=== PATIENT | female | born 1935 | race Caucasian/White ===

== ENCOUNTER 2019-01-22 21:22 | Emergency (ER) | payer MEDICARE ==
[2019-01-22 21:34] VITALS: BP 161/74; PULSE 56; RESP 18; TEMP 97.8
--- NOTE | 2019-01-22 21:57 | ED ---
General Adult HPI - General Chief complaint: Extremity Injury, Upper Stated complaint: Broken hand, Hand swollen in cast Time Seen by Provider: 01/22/19 21:44 Source: patient Mode of arrival: ambulatory Limitations: no limitations - History of Present Illness Initial comments: This patient is an 83-year-old woman who presents to have evaluation of her r ight hand. The patient states that she had fallen and had a wrist fracture that occurred on Monday. She was seen by Dr. Fong, in the clinic and had a cast applied yesterday. Today she noticed that there was an increase in the swelling and she had noticed some bruising low the margin of the cast. She states that her papers had instructed her to be seen if there was any discoloration. The pa tient denies significant pain. She is not having numbness of the hand or fingers. She has not noted weakness of the fingers. -: hour(s) Location: right, upper extremity Severity scale (1-10): 0 Consistency: constant Improves with: none Worsens with: none Treatments Prior to Arrival: none - Related Data Home Medications Medication Instructions Recorded Confirmed Atenolol 25 mg PO DAILY 10/19/15 01/22/19 Atorvastatin [Lipitor] 10 mg PO DAILY 10/19/15 01/22/19 Calcium Carbonate/Vitamin D3 1 tab PO DAILY 10/19/15 01/22/19 [Calcium 600 + Vit D Tablet] Ezetimibe [Zetia] 10 mg PO DAILY 10/19/15 01/22/19 Famotidine [Pepcid] 20 mg PO DAILY PRN 10/19/15 01/22/19 Levothyroxine Sodium [Synthroid] 88 mcg PO DAILY 10/19/15 01/22/19 Multivitamins, Thera [Multivitamin] 1 tab PO DAILY 10/19/15 01/22/19 Vitamin E 1,000 unit PO DAILY 10/19/15 01/22/19 Allergies Allergy/AdvReac Type Severity Reaction Status Date / Time azithromycin Allergy Swelling Verified 01/22/19 21:49 [From Zithromax Z-Srinivasan] cefaclor [From Ceclor] Allergy Rash/Hives Verified 01/22/19 21:49 clindamycin Allergy Diarrhea, Verified 01/22/19 21:49 AND UNKNOWN SYMPTOMS codeine Allergy Unknown Verified 01/22/19 21:49 Penicillins Allergy Unknown Verified 01/22/19 21:49 sulfamethoxazole Allergy Rash/Hives Verified 01/22/19 21:49 [From Bactrim] tetrahydrozoline HCl Allergy Swelling Verified 01/22/19 21:49 [From Visine] timolol [From Betimol] Allergy Swelling Verified 01/22/19 21:49 trimethoprim [From Bactrim] Allergy Rash/Hives Verified 01/22/19 21:49 Review of Systems ROS Statement: Those systems with pertinent positive or pertinent negative responses have been documented in the HPI. ROS Other: All systems not noted in ROS Statement are negative. Constitutional: Denies: fever, chills, weakness Respiratory: Denies: cough, dyspnea Cardiovascular: Denies: chest pain, palpitations Musculoskeletal: Reports: as per HPI, joint swelling Neurological: Denies: weakness, numbness, paresthesias Past Medical History Past Medical History: Cancer, CVA/TIA, GERD/Reflux, Hyperlipidemia, Hypertension, Osteoarthritis (OA), Thyroid Disorder Additional Past Medical History / Comment(s): CERVICAL CANCER, CATARACT BOTH EYES. broken right wrist History of Any Multi-Drug Resistant Organisms: None Reported Past Surgical History: Hysterectomy, Orthopedic Surgery Additional Past Surgical History / Comment(s): RIGHT KNEE ARTHROSCOPIC Past Anesthesia/Blood Transfusion Reactions: No Reported Reaction Past Psychological History: No Psychological Hx Reported Smoking Status: Former smoker Past Alcohol Use History: None Reported Past Drug Use History: None Reported - Past Family History Daughter(s) Family Medical History: Cancer Additional Family Medical History / Comment(s): LEUKEMIA General Exam Limitations: no limitations General appearance: alert, in no apparent distress Cardiovascular Exam: Present: other (Ears normal capillary refill throughout the right hand) Extremities exam: Present: full ROM, normal capillary refill, other (Patient has a Ortho-Glass short arm cast to the right wrist and forearm. Inspection reveals that there is a small amount of ecchymosis covering the MCP joints. Color throughout the fingers is normal. There is normal capillary refill. There is normal strength and sensation.) Neurological exam: Present: alert. Absent: motor sensory deficit Skin exam: Present: warm, dry, intact, normal color, other Course Vital Signs 01/22/19 21:30 Temperature 97.8 F Pulse Rate 56 L Respiratory 18 Rate Blood Pressure 161/74 O2 Sat by Pulse 98 Oximetry Disposition Clinical Impression: Problem with fiberglass cast Disposition: HOME SELF-CARE Condition: Good Instructions (If sedation given, give patient instructions): Cast Care (ED) Is patient prescribed a controlled substance at d/c from ED?: No Referrals: Gretta Mckinney MD [Primary Care Provider] - 1-2 days Sathya Fong MD [STAFF PHYSICIAN] - 1-2 days
== END 2019-01-22 22:11 | disposition home or self-care (01) ==
LOC: EC 21:22
DX: S60.211A Contusion of right wrist, initial encounter (principal); E78.5 Hyperlipidemia, unspecified; I10 Essential (primary) hypertension; E07.9 Disorder of thyroid, unspecified; Z85.41 Personal history of malignant neoplasm of cervix uteri; Z86.73 Personal history of transient ischemic attack (TIA), and cerebral infarction without residual deficits; Z87.891 Personal history of nicotine dependence; Z79.890 Hormone replacement therapy; Z79.899 Other long term (current) drug therapy; Z88.1 Allergy status to other antibiotic agents; Z88.5 Allergy status to narcotic agent; Z88.0 Allergy status to penicillin; Z88.2 Allergy status to sulfonamides; Z88.8 Allergy status to other drugs, medicaments and biological substances; W19.XXXA Unspecified fall, initial encounter
CPT/HCPCS: 99283

== ENCOUNTER 2020-11-29 14:08 | Inpatient (IN) | payer MEDICARE ==
[~2020-11-29 14:08] MED LIST: SODIUM CHLORIDE 0.9% 1,000 ML IV ONE
[2020-11-29] MEDS ORDERED: VERAPAMIL 2.5 MG/ML 2 ML AMP ONE (14:25)
[2020-11-29] MEDS ORDERED: LIDOCAINE 1% INJ 10MG/ML (20 ML MDV) ONE (14:25)
[2020-11-29] MEDS ORDERED: fentaNYL (PF) 50 MCG/ML 2 ML AMP IV ONE (14:25)
[2020-11-29] MEDS ORDERED: MIDAZOLAM 2 MG/2 ML VIAL IV ONE (14:25)
[2020-11-29] MEDS ORDERED: LIDOCAINE 1% INJ 10MG/ML (20 ML MDV) SQ ONE (14:27)
[2020-11-29] MEDS ORDERED: NALOXONE 0.4 MG/ML 1 ML VIAL IV PRN (14:27)
[2020-11-29] MEDS ORDERED: fentaNYL (PF) 50 MCG/ML 2 ML AMP ONE (14:28)
[2020-11-29] MEDS ORDERED: VERAPAMIL SYRINGE (5 MG/10 ML) INTRAARTER ONE (14:29)
[2020-11-29] MEDS ORDERED: HEPARIN SODIUM 1,000 UN/ML (10ML VL) ONE (14:33)
--- NOTE | 2020-11-29 14:33 | ED ---
General Adult HPI - General Stated complaint: Stemi Source: patient, EMS, RN notes reviewed, old records reviewed - History of Present Illness Initial comments: 84-year-old female who had been transferred from [facility] as an acute NV, ST segment elevation NV. DL physician from [facility] have discussed case both with myself and with the covering lift manager Dr. Read who had accepted the patient. She was planning to go directly to the Insurance Sales Manager however just outside emergency department she had a V. fib arrest and was defibrillated by paramedics. They requested evaluation in the emergency department. Patient had return to sinus rhythm with a momentary wrong of ventricular tachycardia. She was somewhat lethargic but able to answer questions. She had developed some worsening chest discomfort and a burning sensation in her neck just prior to this episode. She was transported to the [facility] Sales [facility] accompanied by myself two ER nurses. As well as paramedics. - Related Data Home Medications Medication Instructions Recorded Confirmed Atorvastatin [Lipitor] 10 mg PO DAILY 10/19/15 01/22/19 Calcium Carbonate/Vitamin D3 1 tab PO DAILY 10/19/15 01/22/19 [Calcium 600 + Vit D Tablet] Ezetimibe [Zetia] 10 mg PO DAILY 10/19/15 01/22/19 Famotidine [Pepcid] 20 mg PO DAILY PRN 10/19/15 01/22/19 Levothyroxine Sodium [Synthroid] 88 mcg PO DAILY 10/19/15 01/22/19 Multivitamins, Thera [Multivitamin] 1 tab PO DAILY 10/19/15 01/22/19 Vitamin E (Dl,Tocopheryl Acet) 1,000 unit PO DAILY 10/19/15 01/22/19 [Vitamin E] atenoloL [Atenolol] 25 mg PO DAILY 10/19/15 01/22/19 Allergies Allergy/AdvReac Type Severity Reaction Status Date / Time azithromycin Allergy Swelling Verified 01/22/19 21:49 [From Zithromax Z-Srinivasan] cefaclor [From Ceclor] Allergy Rash/Hives Verified 01/22/19 21:49 clindamycin Allergy Diarrhea, Verified 01/22/19 21:49 AND UNKNOWN SYMPTOMS codeine Allergy Unknown Verified 01/22/19 21:49 Penicillins Allergy Unknown Verified 01/22/19 21:49 sulfamethoxazole Allergy Rash/Hives Verified 01/22/19 21:49 [From Bactrim] tetrahydrozoline HCl Allergy Swelling Verified 01/22/19 21:49 [From Visine] timolol [From Betimol] Allergy Swelling Verified 01/22/19 21:49 trimethoprim [From Bactrim] Allergy Rash/Hives Verified 01/22/19 21:49 Review of Systems ROS Statement: Those systems with pertinent positive or pertinent negative responses have been documented in the HPI. ROS Other: All systems not noted in ROS Statement are negative. Past Medical History Past Medical History: Cancer, CVA/TIA, GERD/Reflux, Hyperlipidemia, Hypertension, Osteoarthritis (OA), Thyroid Disorder Additional Past Medical History / Comment(s): CERVICAL CANCER, CATARACT BOTH EYES. broken right wrist History of Any Multi-Drug Resistant Organisms: None Reported Past Surgical History: Hysterectomy, Orthopedic Surgery Additional Past Surgical History / Comment(s): RIGHT KNEE ARTHROSCOPIC Past Anesthesia/Blood Transfusion Reactions: No Reported Reaction Past Psychological History: No Psychological Hx Reported Past Alcohol Use History: None Reported Past Drug Use History: None Reported - Past Family History Daughter(s) Family Medical History: Cancer Additional Family Medical History / Comment(s): LEUKEMIA General Exam General appearance: lethargic, in distress Head exam: Present: atraumatic, normocephalic Eye exam: Present: normal appearance, PERRL ENT exam: Present: normal exam Neck exam: Present: normal inspection Respiratory exam: Absent: respiratory distress Cardiovascular Exam: Present: regular rate, normal rhythm, other (Monitor tracing, occasional PVC and occasional bigeminy) Neurological exam: Present: alert Skin exam: Present: pallor Procedures - [place] Protocol (Time Out) Patient Identification (2 identifiers required): Arm Band, Name, Birthdate Patient/Legal Expanding Machine Operator has Confirmed: Identity, Procedure, Consent Site Marked: Not Applicable Medical Decision Making - Medical Decision Making 84-year-old female transferred from outside hospital with ST segment elevated NV. Patient had a momentary ventricular defibrillation requiring defibrillation. She can return to sinus rhythm. She was transported immediately to the [facility] Sales [facility]. She had been given aspirin, heparin prior to transfer. Patient admitted to internal medicine, discussed with admitting physician. Disposition Clinical Impression: STEMI (ST elevation myocardial infarction) Disposition: ADMITTED IP TO THIS HOSP Condition: Serious Is patient prescribed a controlled substance at d/c from ED?: No Referrals: None,Stated [Primary Care Provider] - 1-2 days Decision to Admit Reason: Admit from EC
[2020-11-29] MEDS: HEPARIN SODIUM 1,000 UN/ML (10ML VL) IV ONE ×2 (14:40→15:06)
[2020-11-29] MEDS ORDERED: CLOPIDOGREL 75 MG TAB ONE (15:06)
[2020-11-29] MEDS ORDERED: CLOPIDOGREL 75 MG TAB PO ONE (15:06)
[2020-11-29 15:10] LABS: Basophils % (A) 0 %; Eosinophils # (A) 0.1 k/uL (0-0.7); Eosinophils % (A) 1 %; HCT 37.3 % (34.0-46.0); HGB 12.1 gm/dL (11.4-16.0); Lymphocytes # (A) 1.4 k/uL (1.0-4.8); Lymphocytes % (A) 11 %; MCH 31.6 pg (25.0-35.0); MCHC 32.6 g/dL (31.0-37.0); MCV 97.2 fL (80.0-100.0); Mean Platelet Volume 6.2; Monocytes # (A) 0.4 k/uL (0-1.0); Monocytes % (A) 3 %; Neutrophils # (A) 10.5 k/uL (1.3-7.7); Neutrophils % (A) 83 %; Platelet Count 377 k/uL (150-450); RBC 3.84 m/uL (3.80-5.40); RDW 12.4 % (11.5-15.5); WBC 12.7 k/uL (3.8-10.6)
[2020-11-29] MEDS ORDERED: IOPAMIDOL-370 125ML BTL INJ ONE (15:12)
[2020-11-29] MEDS ORDERED: NITROGLYCERIN SL TABS 0.4 MG TAB SUBLINGUAL PRN (15:19)
[2020-11-29] MEDS ORDERED: MAG HYDROX/AL HYDROX/SIMETH 30 ML CUP PO PRN (15:19)
[2020-11-29] MEDS ORDERED: ATROPINE SULFATE 0.1 MG/ML 10ML SYRINGE IV PRN (15:19)
[2020-11-29] MEDS ORDERED: ZOLPIDEM 5 MG TAB PO PRN (15:19)
[2020-11-29] MEDS ORDERED: RX INFO: IV CONTRAST WAS GIVEN 1 EACH MISC MISCELLANE PRN (15:19)
[2020-11-29 15:20] LABS: ALT 15 U/L (4-34); AST 34 U/L (14-36); African American GFR (CKD) >90 (>60 ml/min/1.73 sqM); Albumin 4.1 g/dL (3.5-5.0); Alkaline Phosphatase 72 U/L (38-126); Anion Gap 7 mmol/L; Blood Urea Nitrogen 10 mg/dL (7-17); Calcium 9.2 mg/dL (8.4-10.2); Carbon Dioxide 24 mmol/L (22-30); Chloride 98 mmol/L (98-107); Glucose 137 mg/dL (74-99); Non-African American GFR(CKD) 82 (>60 ml/min/1.73 sqM); Potassium 3.3 mmol/L (3.5-5.1); Sodium 129 mmol/L (137-145); Total Bilirubin 0.3 mg/dL (0.2-1.3); Total Protein 6.8 g/dL (6.3-8.2)
--- NOTE | 2020-11-29 15:42 | P.CRDCN ---
History of Present Illness History of present illness: HISTORY OF PRESENTING ILLNESS This is a pleasant 84-year-old with past medical history significant for hypertension, hyperlipidemia and otherwise fairly healthy. [facility] with chest pain which began today at approximately 1 PM. Chest pain felt like a pressure going towards her back which has not resolved. She denies any previous similar episodes. EKG at [facility] showed ST elevation in the inferior leads with reciprocal changes and therefore she was emergently brought to [facility] for heart catheterization and possible PCI. She has not seen a lease administration analyst previously, denies any tobacco or alcohol use. On transfer to [facility], patient had a V. fib arrest and required cardioversion. After cardioversion patient felt fine however still had the chest discomfort. Patient therefore was emergently brought to the catheterizat ion lab. REVIEW OF SYSTEMS At the time of my exam: CONSTITUTIONAL: Denies fever or chills. CARDIOVASCULAR: +chest pain, no shortness of breath, orthopnea, PND or palpitations. RESPIRATORY: Denies cough. GASTROINTESTINAL: Denies abdominal pain, diarrhea, constipation, nausea or vomiting. MUSCULOSKELETAL: Denies myalgias. NEUROLOGIC: Denies numbness, tingling or weakness. ENDOCRINE: Denies fatigue, weight change, polydipsia or polyurina. GENITOURINARY: Denies burning, hematuria or urgency with micturation. HEMATOLOGIC: Denies history of anemia or bleeding. PHYSICAL EXAMINATION Vital signs reviewed. CONSTITUTIONAL: Mild distress. Mildly frail HEENT: Head is normocephalic. Pupils are equal, round. Sclerae anicteric. Mucous membranes of the mouth are moist. No JVD. No carotid bruit. CHEST EXAMINATION: Lungs are clear to auscultation. No chest wall tenderness is noted on palpation or with deep breathing. HEART EXAMINATION: Regular rate and rhythm. S1, S2 heard. No murmurs, gallops or rub. ABDOMEN: Soft, nontender. Positive bowel sounds. EXTREMITIES: 2+ peripheral pulses, no lower extremity edema and no calf tenderness. NEUROLOGIC EXAMINATION: Patient is awake, alert and oriented x3. ASSESSMENT 1. Inferior STEMI 2. V. fib arrests related to STEMI 3. Essential hypertension 4. Hyperlipidemia PLAN Patient will be emergently brought to the catheterization lab with her cat heterization, possible PCI. Continue beta gildardo for V. fib arrests, check 2-D echo. No amiodarone at this time as V. fib arrest is not uncommon with acute coronary syndrome however monitor for any increasing ectopy. Further recommendations to follow. Past Medical History Past Medical History: Cancer, CVA/TIA, GERD/Reflux, Hyperlipidemia, Hypertension, Osteoarthritis (OA), Thyroid Disorder Additional Past Medical History / Comment(s): CERVICAL CANCER, CATARACT BOTH EYES. broken right wrist History of Any Multi-Drug Resistant Organisms: None Reported Past Surgical History: Hysterectomy, Orthopedic Surgery Additional Past Surgical History / Comment(s): RIGHT KNEE ARTHROSCOPIC Past Anesthesia/Blood Transfusion Reactions: No Reported Reaction Past Psychological History: No Psychological Hx Reported Past Alcohol Use History: None Reported Past Drug Use History: None Reported - Past Family History Daughter(s) Family Medical History: Cancer Additional Family Medical History / Comment(s): LEUKEMIA Medications and Allergies Home Medications Medication Instructions Recorded Confirmed Type Atorvastatin [Lipitor] 10 mg PO DAILY 10/19/15 01/22/19 History Calcium Carbonate/Vitamin D3 1 tab PO DAILY 10/19/15 01/22/19 History [Calcium 600 + Vit D Tablet] Ezetimibe [Zetia] 10 mg PO DAILY 10/19/15 01/22/19 History Famotidine [Pepcid] 20 mg PO DAILY PRN 10/19/15 01/22/19 History Levothyroxine Sodium [Synthroid] 88 mcg PO DAILY 10/19/15 01/22/19 History Multivitamins, Thera [Multivitamin] 1 tab PO DAILY 10/19/15 01/22/19 History Vitamin E (Dl,Tocopheryl Acet) 1,000 unit PO DAILY 10/19/15 01/22/19 History [Vitamin E] atenoloL [Atenolol] 25 mg PO DAILY 10/19/15 01/22/19 History Allergies Allergy/AdvReac Type Severity Reaction Status Date / Time azithromycin Allergy Swelling Verified 01/22/19 21:49 [From Zithromax Z-Srinivasan] cefaclor [From Ceclor] Allergy Rash/Hives Verified 01/22/19 21:49 clindamycin Allergy Diarrhea, Verified 01/22/19 21:49 AND UNKNOWN SYMPTOMS codeine Allergy Unknown Verified 01/22/19 21:49 Penicillins Allergy Unknown Verified 01/22/19 21:49 sulfamethoxazole Allergy Rash/Hives Verified 01/22/19 21:49 [From Bactrim] tetrahydrozoline HCl Allergy Swelling Verified 01/22/19 21:49 [From Visine] timolol [From Betimol] Allergy Swelling Verified 01/22/19 21:49 trimethoprim [From Bactrim] Allergy Rash/Hives Verified 01/22/19 21:49 Physical Exam Vitals: Intake and Output 11/29/20 11/29/20 11/29/20 06:59 14:59 22:59 Intake Total 100 Balance 100 Intake: IV 100 Other: Weight 49 kg Results 11/29/20 15:00 11/29/20 15:00 Cardiac Enzymes 11/29/20 Range/Units 15:00 AST 34 (14-36) U/L CBC 11/29/20 Range/Units 15:00 WBC 12.7 H (3.8-10.6) k/uL RBC 3.84 (3.80-5.40) m/uL Hgb 12.1 (11.4-16.0) gm/dL Hct 37.3 (34.0-46.0) % Plt Count 377 (150-450) k/uL Comprehensive Metabolic Panel 11/29/20 Range/Units 15:00 Sodium 129 L (137-145) mmol/L Potassium 3.3 L (3.5-5.1) mmol/L Chloride 98 (98-107) mmol/L Carbon Dioxide 24 (22-30) mmol/L BUN 10 (7-17) mg/dL Creatinine 0.68 (0.52-1.04) mg/dL Glucose 137 H (74-99) mg/dL Calcium 9.2 (8.4-10.2) mg/dL AST 34 (14-36) U/L ALT 15 (4-34) U/L Alkaline Phosphatase 72 (38-126) U/L Total Protein 6.8 (6.3-8.2) g/dL Albumin 4.1 (3.5-5.0) g/dL Intake and Output 11/29/20 11/29/20 11/29/20 06:59 14:59 22:59 Intake Total 100 Balance 100 Intake: IV 100 Other: Weight 49 kg Patient Weight 11/30/20 06:59 Weight 49 kg 11/29/20 15:00 11/29/20 15:00
[2020-11-29 15:46] LABS: Glucose,Whole Blood 116 mg/dL (75-99)
[2020-11-29] MEDS ORDERED: ONDANSETRON 4 MG/2 ML VIAL IVP PRN (16:17)
[2020-11-29] MEDS ORDERED: ALPRAZolam 0.25 MG TAB PO PRN (18:12)
[2020-11-29] MEDS ORDERED: FAMOTIDINE 20 MG TAB PO PRN (18:12)
[2020-11-29] MEDS ORDERED: Potassium Replacement Protocol 1 EACH MISC MISCELLANE PRN (18:12)
[2020-11-29] MEDS ORDERED: Magnesium Replacement Protocol 1 EACH MISC MISCELLANE PRN (18:12)
--- NOTE | 2020-11-29 19:35 | HP ---
HISTORY AND PHYSICAL DATE OF SERVICE: 11/29/2020 CHIEF COMPLAINT: Chest and back pain. HISTORY OF PRESENT ILLNESS: This is an 84-year-old woman with a past medical history of multiple medical problems including CVA, TIA, GERD, hypertension, hyperlipidemia, history of DJD, history of cervical cancer, being followed by Dr. Mckinney in the outpatient setting. She had chest pain this morning. The pain was in the anterior part of the chest as well as behind shoulders and apparently the daughter drove her to [facility], which showed the patient was found to have acute ST-segment elevation myocardial infarction. The patient was transferred to [facility]. On the way, the patient had ventricular fibrillation and arrested and was defibrillated by paramedics. The patient underwent cardiac catheterization by Dr. Read and the patient had stenting. The full report is pending at this time. There is no history of fever, rigors, chills. No history of headache, loss of consciousness, seizures. PAST MEDICAL HISTORY: History of CVA, TIA, GERD, hypertension, hyperlipidemia, history of DJD, hypothyroidism, cervical cancer. MEDICATIONS: Home medications are atenolol 25 mg daily, multivitamins one daily, Synthroid 88 mcg daily, Pepcid 20 mg daily, Zetia 10 mg daily, Calcium with vitamin D 1 p.o. daily, Lipitor 10 mg p.o. daily. ALLERGIES: ZITHROMAX, CECLOR, CLINDAMYCIN, CODEINE, PENICILLIN, BACTRIM, VISINE. FAMILY HISTORY: History of leukemia. SOCIAL HISTORY: History of smoking. No history of alcohol intake. REVIEW OF SYSTEMS: CARDIOVASCULAR: No angina. RESPIRATORY: No cough. GI: As mentioned earlier. : No dysuria. NERVOUS SYSTEM: No numbness or weakness. ALLERGY/IMMUNOLOGY: No asthma or hayfever. MUSCULOSKELETAL: As mentioned earlier. HEMATOLOGY: No history of anemia. ENDOCRINE: Hypothyroidism. CONSTITUTIONAL: As mentioned earlier. DERMATOLOGY: Negative. RHEUMATOLOGY: Negative. PSYCHIATRY: As mentioned earlier. PHYSICAL EXAMINATION: GENERAL: Patient is alert and oriented times three. VITAL SIGNS: Pulse 82, blood pressure 120/80, respirations 20, temperature normal. HEENT: Conjunctivae normal. NECK: No jugular venous distention. No carotid bruits. RESPIRATORY: Breath sounds diminished at the bases. A few scattered rhonchi. HEART: S1 and S2, muffled. ABDOMEN: Soft, no tenderness. No masses palpable. EXTREMITIES: No edema, no swelling. NERVOUS: Higher functions as mentioned earlier. Moves all four limbs. No focal motor or sensory deficits. LYMPHATICS: No lymph nodes palpable in the neck or axillae. SKIN: No rashes. JOINTS: No active deforming arthropathy. LAB STUDIES: WBC 12.2, hemoglobin 12.2, sodium 139, potassium 3.3. ASSESSMENT: 1. Acute ST-segment elevation myocardial infarction status post cardiac catheterization and stenting. 2. Hyponatremia. 3. Ventricular fibrillation status post cardioversion. 4. Hypokalemia. 5. Increased WBC, possibly reactive. 6. History of cerebrovascular accident and transient ischemic attack .. 7. Gastroesophageal reflux disease. 8. Hyperlipidemia. 9. Hypertension. 10.History of degenerative joint disease. 11.Hypothyroidism. 12.History of cervical cancer. 13.History of transient ischemic attack .. 14.History hysterectomy. 15.History of degenerative joint disease. 16.Remote history of nicotine dependence. 17.FULL CODE. RECOMMENDATIONS AND DISCUSSION: This 84-year-old woman who presented with multiple complex medical issues, we will monitor the patient closely. We will continue to monitor. Continue the beta blockers and antiplatelet agents. Monitor closely in ICU. We will check and replace magnesium. Potassium will be also will be replaced. The home medications were resumed. Otherwise, prognosis guarded because of multiple complex medical issues. Closely follow with Cardiology. I discussed the diagnostic and prognostic implications with the family at the bedside who understands and agrees. Further recommendations to follow. MMODL / IJN: [id number] /
[2020-11-29 19:44] LABS: ALT 18 U/L (4-34); AST 58 U/L (14-36); African American GFR (CKD) >90 (>60 ml/min/1.73 sqM); Albumin 4.3 g/dL (3.5-5.0); Alkaline Phosphatase 72 U/L (38-126); Anion Gap 12 mmol/L; Blood Urea Nitrogen 11 mg/dL (7-17); Calcium 9.7 mg/dL (8.4-10.2); Carbon Dioxide 22 mmol/L (22-30); Chloride 99 mmol/L (98-107); Glucose 131 mg/dL (74-99); Non-African American GFR(CKD) 79 (>60 ml/min/1.73 sqM); Sodium 133 mmol/L (137-145); Total Bilirubin 0.5 mg/dL (0.2-1.3); Total Protein 6.8 g/dL (6.3-8.2)
[2020-11-29 19:50] LABS: Potassium 3.8 mmol/L (3.5-5.1)
[2020-11-29] MEDS ORDERED: METOPROLOL TARTRATE 25 MG TAB PO SCH (21:00)
[2020-11-29] MEDS: PANTOPRAZOLE 40 MG/10 ML VIAL IVP SCH (22:03)
[2020-11-29] MEDS: METOPROLOL TARTRATE 25 MG TAB PO SCH (22:04)
--- NOTE | 2020-11-29 22:04 | P.PRCINT ---
Percutaneous Coronary Int. - Percutaneous Coronary Intervention Percutaneous Coronary Intervention: PROCEDURES PERFORMED: Bilateral coronary angiography, PCI of the mid circumflex with 4.0 x 8 mm Xience SHAYNE, attempted wiring of RCA INDICATION: STEMI HISTORY: Patient is a pleasant 84-year-old female with history of hypertension and hyperlipidemia who presents secondary to chest pain, back pain and was found to have minimal ST elevations in the inferior leads with reciprocal changes. Therefore patient was transferred from [facility] to [facility] for left heart catheterization, PCI. On transfer patient had a V. fib arrest successfully treated with defibrillation. CONSENT:I have discussed the risks, benefits and alternative therapies for the above-mentioned procedure and for both sedation/analgesia as well as necessary blood product administration, if indicated, as they pertain to this patient. The patient has indicated understanding and acceptance of the risks and procedures discussed. PROCEDURE: After the risks, benefits and alternatives of the above mentioned procedure explained in detail with the patient, informed consent was obtained. Patient was taken to the catheterization lab and prepped and draped in usual fashion. 1% lidocaine was used to anesthetize the right radial artery. A 6- Croatian sheath was placed in the right radial artery using modified Seldinger technique. The J-wire was attempted to be advanced past the subclavian however subclavian was very tortuous and there was difficulty with advancing. Therefore decision was made to switch to femoral approach. The right femoral area was anesthetized with 1% lidocaine. A 6-Croatian sheath was placed using Seldinger technique and micropuncture technique. Right coronary angiography was performed with a 6-Croatian AL 0.75 guide catheter and Left coronary angiography was performed with a 6-Croatian FL4 catheter in various views. Given inferior ST elevations and what appeared to be dieting up in the RCA the decision was made to attempt intervention of the RCA. There were extensive aneurysms with what appeared to be a heavily calcified thrombus of the distal RCA at the site of 100% stenosis. With the help of a microcatheter a 0.014 whisper wire was advanced into what appeared to be the PDA however came off at a fairly acute angle. This appeared to be the area of bifurcation into the PLV is well and not felt to be a good area for stenting, likely unsuccessful with possible risks of perforation. There is also noted to be some left to right collaterals with some component of an acute on chronic total occlusion and therefore consideration of stenting circumflex lesion to help with collateral flow. Therefore a 6-Croatian CLS 3.5 guide was used to engage the left main. A 0.014 BMW wire was advanced into the distal circumflex. Primary stenting was performed of the mid circumflex with a 4.0 x 8 mm Xience SHAYNE. With intervention patient's chest pain improved to a minimal and ST elevations predominantly improved. The right radial sheath was removed and a TR band was placed with hemostasis ac hieved. The patient tolerated the procedure well. Patient was transported back to the post catheterization holding area in stable condition. Conscious Sedation: Patient was monitored under the direct supervision of vision of myself for conscious sedation using Versed and fentanyl for a total duration of 51 minutes HEMODYNAMICS: Ao: 143/78 SELECTIVE CORONARY ARTERIOGRAPHY: LEFT MAIN: The left main is a large caliber vessel which bifurcates into the LAD and circumflex. There is 10% stenosis. LEFT ANTERIOR DESCENDING CORONARY ARTERY: LAD is a large caliber vessel which wraps around to the apex. The LAD has diffuse aneurysms as well as a mid 60-70% LAD stenosis. Diagonal 1 is moderate caliber and has a ostial 60% stenosis. LEFT CIRCUMFLEX CORONARY ARTERY: Left circumflex is a large caliber vessel which is diffusely aneurysmal with an additional area of mid circumflex 85% stenosis. RIGHT CORONARY ARTERY: The right coronary artery is a large caliber vessel which gives off a PDA and PLV branch and is the dominant vessel. There is diffuse mild to moderate stenosis as well 3 areas of diffuse aneurysm. The most distal aneurysm has what appears to be a calcified thrombus obstructing most of the lumen of the aneurysm. There is tightening up at this point. There is 100% stenosis at the distal end of the aneurysm. FINAL IMPRESSION: 1. CAD as described above including 100% RCA, mid circumflex 85%, mid LAD 60- 70%, ostial diagonal 1 60% 2. Diffuse aneurysmal CAD. Correlate for history of Kawasaki's disease or vasculitis 3. S/p successful PCI of mid circumflex with improvement in collateral flow 4. Site of aneurysmal RCA stenosis not amenable to stenting. Benefits not felt to outweigh risks with higher risk of perforation, unclear course of artery distal to aneurysm, likely acute on chronic component with some collaterals, large calcified thrombus noted in the RCA aneurysm, as well as likely poor shelter stent patency. PLAN: 1. Aggressive risk factor modification per most recent ACC/AHA guidelines. 2. Continue dual antiplatelets for 12 months 3. Would continue to treat RCA medically. Continue to treat LAD and diagonal branch medically however may consider functional evaluation if persistent symptoms
[2020-11-30 03:23] LABS: Appearance,Urine Clear (Clear); Bilirubin,Urine Negative (Negative); Blood,Urine Trace (Negative); Color,Urine Light Yellow; Glucose,Urine (UA) Negative (Negative); Ketones,Urine 1+ (Negative); Leukocyte Esterase,Urine Negative (Negative); Mucus,Urine Rare /hpf; Nitrite,Urine Negative (Negative); PH, Urine 6.5 (5.0-8.0); Protein,Urine Trace (Negative); RBC,Urine 2 /hpf (0-5); Specific Gravity,Urine 1.023 (1.001-1.035); Urobilinogen,Urine <2.0 mg/dL (<2.0); WBC,Urine 2 /hpf (0-5)
[2020-11-30 04:11] LABS: Basophils % (A) 0 %; Eosinophils % (A) 0 %; HCT 36.3 % (34.0-46.0); HGB 12.2 gm/dL (11.4-16.0); Lymphocytes # (A) 0.7 k/uL (1.0-4.8); Lymphocytes % (A) 5 %; MCHC 33.6 g/dL (31.0-37.0); MCV 98.3 fL (80.0-100.0); Mean Platelet Volume 6.2; Monocytes # (A) 0.7 k/uL (0-1.0); Monocytes % (A) 6 %; Neutrophils # (A) 10.7 k/uL (1.3-7.7); Neutrophils % (A) 87 %; Platelet Count 340 k/uL (150-450); RDW 11.8 % (11.5-15.5); WBC 12.3 k/uL (3.8-10.6)
--- NOTE | 2020-11-30 06:10 | XR ---
EXAMINATION TYPE: XR chest 1V portable DATE OF EXAM: 11/30/2020 CLINICAL HISTORY: Difficulty breathing and CHF. TECHNIQUE: Single AP portable frontal upright view of the chest is obtained. COMPARISON: None FINDINGS: Exam limited by overlying defibrillator pads. Additional overlying EKG leads. Elevated lef t hemidiaphragm. Linear bibasilar opacities. There is no suspicious focal air space opacity, pleural effusion, or pneumothorax seen. The cardiac silhouette size is upper limits of normal with atheroscl erotic thoracic aorta. The osseous structures are intact. IMPRESSION: [id number] bibasilar linear scarring and/or atelectasis
[2020-11-30] MEDS: SODIUM CHLORIDE 0.9% 1,000 ML IV SCH (07:51)
[2020-11-30] MEDS: ASPIRIN 81 MG PO SCH (08:02)
[2020-11-30] MEDS: PANTOPRAZOLE 40 MG/10 ML VIAL IVP SCH (08:02)
[2020-11-30] MEDS: LEVOTHYROXINE 88 MCG TAB PO SCH (08:02)
[2020-11-30] MEDS: MULTIVITAMINS, THERA 1 EACH TAB PO SCH (08:02)
[2020-11-30] MEDS: CALCIUM CARB-VIT D 500 MG-5 MCG TAB PO SCH (08:02)
[2020-11-30] MEDS: METOPROLOL TARTRATE 25 MG TAB PO SCH ×2 (08:03→20:13)
[2020-11-30] MEDS ORDERED: ASPIRIN 81 MG PO SCH (09:00)
[2020-11-30 10:40] LABS: Cholesterol 191 mg/dL (<200); HDL Cholesterol 88 mg/dL (40-60); LDL Cholesterol,Calculated 92 mg/dL (0-99); Triglycerides 56 mg/dL (<150)
--- NOTE | 2020-11-30 11:29 | P.PN ---
Subjective Progress Note Date: 11/30/20 HISTORY OF PRESENT ILLNESS: This is an 84-year-old female who does not follow regularly with a due diligence coordinator with a history of hypertension and hyperlipidemia. Patient presented to [facility] secondary to chest pain. Patient was found to have ST elevation. She was transferred to [facility]. During transfer, patient had V. fib arrest and was defibrillated by EMS. Patient was taken to the field laboratory operator by Dr. Read and was found to have coronary artery disease including 100% RCA, mid circumflex 85%, mid LAD 60-70%, an ostial diagonal 1 60%. Patient underwent PCI to mid circumflex. Site of aneurysmal RCA stenosis not amenable to stenting. PHYSICAL EXAM: VITAL SIGNS: Reviewed. GENERAL: Well-developed in no acute distress. NECK: Supple. No JVD or thyromegaly LUNGS: Respirations even and unlabored. Lungs diminished bilaterally. HEART: Regular rate and rhythm. S1 and S2 heard. EXTREMITIES: Normal range of motion. No clubbing or cyanosis. Peripheral pulses intact. No lower extremity edema. Right wrist with previous hematoma, now resolved. Pulse present. ASSESSMENT: STEMI, s/p PCI to circumflex Multi vessel coronary artery disease: 100% RCA, mid circumflex 85%, mid LAD 60- 70%, an ostial diagonal 1 60% V-fib arrest, s/p defibrillation Hyperlipidemia PLAN: 2D echo ordered. Await results. Continue telemetry monitoring. Continue aspirin, plavix, and metoprolol Obtain lipid panel. Begin atorvastatin 40mg at HS May remove TR band today Further recommendations pending patient course Nurse practitioner note has been reviewed by physician. Signing provider agrees with the documented findings, assessment, and plan of care. Objective - Vital Signs Vital signs: Vital Signs Temp 97.6 F 11/30/20 08:00 Pulse 49 L 11/30/20 09:00 Resp 16 11/30/20 09:00 BP 142/70 11/30/20 09:00 Pulse Ox 96 11/30/20 09:00 Intake & Output 11/29/20 11/30/20 11/30/20 18:59 06:59 18:59 Intake Total 250 1140 250 Output Total 250 1050 250 Balance 0 90 0 Weight 51.1 kg 63 kg Intake: IV 250 900 150 Sodium Chloride 0.9% 1, 150 900 150 000 ml @ 75 mls/hr IV . [id number] [facility] Rx#:[id number] Oral 240 100 Output: Urine 250 1050 250 Other: Voiding Method Bedside Commode Bedside Commode # Voids 1 1 1 - Labs CBC & Chem 7: 11/30/20 03:29 11/30/20 03:29 Labs: Abnormal Lab Results - Last 24 Hours (Table) 11/29/20 11/29/20 11/29/20 Range/Units 15:00 15:00 15:45 WBC 12.7 H (3.8-10.6) k/uL RBC (3.80-5.40) m/uL Neutrophils # 10.5 H (1.3-7.7) k/uL Lymphocytes # (1.0-4.8) k/uL Sodium 129 L (137-145) mmol/L Potassium 3.3 L (3.5-5.1) mmol/L Glucose 137 H (74-99) mg/dL POC Glucose (mg/dL) 116 H (75-99) mg/dL AST (14-36) U/L Urine Protein (Negative) Urine Ketones (Negative) Urine Blood (Negative) Urine Mucus (None) /hpf 11/29/20 11/30/20 11/30/20 Range/Units 18:48 01:40 03:29 WBC 12.3 H (3.8-10.6) k/uL RBC 3.70 L (3.80-5.40) m/uL Neutrophils # 10.7 H (1.3-7.7) k/uL Lymphocytes # 0.7 L (1.0-4.8) k/uL Sodium 133 L (137-145) mmol/L Potassium (3.5-5.1) mmol/L Glucose 131 H (74-99) mg/dL POC Glucose (mg/dL) (75-99) mg/dL AST 58 H (14-36) U/L Urine Protein Trace H (Negative) Urine Ketones 1+ H (Negative) Urine Blood Trace H (Negative) Urine Mucus Rare H (None) /hpf
[2020-11-30 11:45] VITALS: BMI 28.0
[2020-11-30 11:45] LABS: C Reactive Protein 3.6 mg/dL (<1.0)
--- NOTE | 2020-11-30 16:01 | PN ---
PROGRESS NOTE DATE OF SERVICE: 11/30/2020 This 84-year-old woman was admitted with acute ST-segment elevation myocardial infarction, had cardiac catheterization by Cardiology. Please refer to Dr. Read detailed cardiac catheterization for details. In short, the patient had 100% occluded RCA, mid circumflex 85%, mid LAD 60% to 70%, ostial diagonal 60%. The patient also had diffuse aneurysmal CAD. The patient does not have any previous diagnosis of any Kawasaki disease or any collagen vascular disease. Patient underwent a PCI of the mid circumflex with improving in the collateral flow. Aggressive risk factor modification has been recommended by Dr. Read. The patient is being closely monitored at this time. There is no history of any fever, rigors, chills at this time. The chest x-ray which was reviewed personally by me showed some bibasilar atelectasis. Labs are WBC 12.3 and HDL 88. He was COVID-19 was negative. PAST MEDICAL HISTORY: Reviewed. REVIEW OF SYSTEMS: CARDIOVASCULAR SYSTEM: No angina. RESPIRATORY SYSTEM: As mentioned earlier. GI: As mentioned earlier. : No dysuria. NERVOUS SYSTEM: No numbness or weakness. CURRENT MEDICATIONS: Current medications are reviewed and include Maalox, Xanax, aspirin, Lipitor, Atropine, Os-Mateus with vitamin D, Pepcid. Lopressor, Zofran, and Ambien. Doses are reviewed. PHYSICAL EXAMINATION: Patient is alert and oriented x3. Pulse 49, blood pressure 142/70, respirations 16, temperature 97.6, pulse ox 96% on 2 L. HEENT: Conjunctivae normal. NECK: No jugular venous distention. CARDIOVASCULAR: S1, S2 muffled. RESPIRATORY: Breath sounds diminished at the bases. A few scattered rhonchi. ABDOMEN: Soft, nontender. LEGS: No edema. NERVOUS SYSTEM: No focal deficits. LABS: WBC 12.3. Other labs are noted. Magnesium is 2. ASSESSMENT: 1. Acute ST-segment elevation myocardial infarction, status post cardiac catheterization and stenting. 2. Diffuse coronary artery disease and as well as aneurysmal RCA with stenosis. 3. Bradycardia. 4. Hyponatremia. 5. Ventricular fibrillation, status post cardioversion en route. 6. Hypokalemia. 7. Increased WBC, possibly reactive. 8. History of cerebrovascular accident, transient ischemic attack. 9. Gastroesophageal reflux disease. 10.Hyperlipidemia. 11.Hypertension. 12.History of degenerative joint disease. 13.History of hypothyroidism. 14.History of cervical cancer. 15.History of transient ischemic attack. 16.History of hysterectomy. 17.Remote history of nicotine dependence. 18.FULL CODE. RECOMMENDATIONS AND DISCUSSION: I recommend to continue current medications, continue with symptomatic treatment. Continue antiplatelet agents. The patient has minimal radial hematoma at this time. Otherwise, reduce the dose of beta blockers and continue the rest of the medications. DVT prophylaxis. Closely follow with Cardiology. Further recommendations to follow. We will recommend close followup with Dr. Mckinney as well as after discharge and there is no history of any Kawasaki disease to explain for the aneurysmal dilatation and I would recommend baseline labs to rule out the possibility of collagen vascular disorders also. MMODL / IJN: [id number] / KEERTHI
[2020-11-30] MEDS ORDERED: ATORVASTATIN 40 MG TAB PO SCH (21:00)
[2020-12-01 03:21] VITALS: RESP 16
[2020-12-01] MEDS: LEVOTHYROXINE 88 MCG TAB PO SCH (05:52)
[2020-12-01 08:08] LABS: Basophils % (A) 0 %; Eosinophils % (A) 0 %; HCT 33.9 % (34.0-46.0); HGB 11.8 gm/dL (11.4-16.0); Lymphocytes # (A) 0.8 k/uL (1.0-4.8); Lymphocytes % (A) 5 %; MCH 33.9 pg (25.0-35.0); MCHC 34.9 g/dL (31.0-37.0); Mean Platelet Volume 6.2; Monocytes % (A) 7 %; Neutrophils # (A) 12.3 k/uL (1.3-7.7); Neutrophils % (A) 86 %; Platelet Count 319 k/uL (150-450); RBC 3.49 m/uL (3.80-5.40); RDW 11.9 % (11.5-15.5); WBC 14.3 k/uL (3.8-10.6)
[2020-12-01 08:20] LABS: Calcium 9.1 mg/dL (8.4-10.2); Potassium 3.6 mmol/L (3.5-5.1)
[2020-12-01] MEDS: CALCIUM CARB-VIT D 500 MG-5 MCG TAB PO SCH (08:36)
[2020-12-01] MEDS: ASPIRIN 81 MG PO SCH (08:36)
[2020-12-01] MEDS: MULTIVITAMINS, THERA 1 EACH TAB PO SCH (08:36)
[2020-12-01] MEDS: METOPROLOL TARTRATE 25 MG TAB PO SCH (08:36)
[2020-12-01] MEDS ORDERED: CLOPIDOGREL 75 MG TAB PO SCH ×2 (09:00)
[2020-12-01] MEDS ORDERED: PANTOPRAZOLE 40 MG TABLET PO SCH (09:00)
[2020-12-01] MEDS ORDERED: lisinopriL 5 MG TAB PO SCH (09:00)
[2020-12-01 11:56] VITALS: BP 129/62; PULSE 71; TEMP 96.7
--- NOTE | 2020-12-01 12:00 | ECHOF ---
Referral Reason:stemi MEASUREMENTS -------- HEIGHT: 149.9 cm WEIGHT: 49.4 kg BP: 145/67 RVIDd: 2.5 cm (< 3.3) IVSd: 1.1 cm (0.6 - 1.1) LVIDd: 3.9 cm (3.9 - 5.3) LVPWd: 1.2 cm (0.6 - 1.1) IVSs: 1.5 cm LVIDs: 2.5 cm LVPWs: 1.2 cm LA Diam: 3.0 cm (2.7 - 3.8) LAESV Index (A-L): 37.37 ml/m Ao Diam: 2.6 cm (2.0 - 3.7) AV Cusp: 1.7 cm (1.5 - 2.6) MV EXCURSION: 13.536 mm (> 18.000) MV EF SLOPE: 36 mm/s (70 - 150) EPSS: 0.6 cm MV E Lonny: 1.11 m/s MV DecT: 240 ms MV A Lonny: 1.12 m/s MV E/A Ratio: 0.99 AV maxP.59 mmHg AV meanP.52 mmHg RAP: 5.00 mmHg RVSP: 34.66 mmHg FINDINGS -------- Sinus rhythm. This was a technically good study. The left ventricular size is normal. There is borderline concentric left ventricular hypertrophy. Overall left ventricular systolic function is normal with, an EF between 55 - 60 %. The right ventricle is normal in size. LA is moderately dilated 34-39 ml/m2 The right atrium is normal in size. Interatrial and interventricular septum intact. There is mild aortic valve sclerosis. There is mild aortic stenosis present. Jyjr-cb-wnhwqphj mitral regurgitation is present. Mild tricuspid regurgitation present. There is mild pulmonary hypertension. The right ventricular systolic pressure, as measured by Doppler, is 34.66mmHg. Trace/mild (physiologic) pulmonic regurgitation. The aortic root size is normal. Normal inferior vena cava with normal inspiratory collapse consistent with estimated right atrial pre ssure of 5 mmHg. There is no pericardial effusion. CONCLUSIONS -------- 1. The left ventricular size is normal. 2. There is borderline concentric left ventricular hypertrophy. 3. LA is moderately dilated 34-39 ml/m2 4. There is mild aortic valve sclerosis. 5. There is mild aortic stenosis present. 6. Vroj-wi-hpccofcs mitral regurgitation is present. 7. Mild tricuspid regurgitation present. 8. There is mild pulmonary hypertension. 9. The right ventricular systolic pressure, as measured by Doppler, is 34.66mmHg. 10. Trace/mild (physiologic) pulmonic regurgitation. 11. There is no pericardial effusion. BIOMEDICAL EQUIPMENT TECH: Ariella Bautista RDCS
[2020-12-01 13:16] LABS: C-ANCA <1:20 Titer (<1:20)
--- NOTE | 2020-12-01 13:47 | P.PN ---
Subjective This is a pleasant 84-year-old female past medical history significant for hypertension, dyslipidemia and hypothyroidism. She presented to the hospital with symptoms of chest discomfort and V. fib arrest. She was found to have an acute ST elevated myocardial infarction and underwent successful PCI to the mid circumflex. Echocardiogram obtained reveals preserved LV systolic function with ejection fraction 55-60%, mild aortic stenosis, mild to moderate mitral regurgitation, mild tricuspid regurgitation and mild pulmonary hypertension with an RVSP of 34 mmHg. She is seen and examined sitting up in no acute distress. She denies any further symptoms of chest discomfort. Breathing is stable. Telemetry has been unremarkable. Blood pressure 145/67 heart rate 71 afebrile maintaining oxygen saturation on room air. Laboratory data reviewed, WBC 14.3, hemoglobin 11.8, platelets 319, sodium 129, potassium 3.6, creatinine 0.77. GENERAL: Well-appearing, well-nourished and in no acute distress. NECK: Supple without JVD or thyromegaly. LUNGS: Breath sounds clear to auscultation bilaterally. Respiration equal and unlabored. No wheezes, rales or rhonchi. HEART: Regular rate and rhythm without murmurs, rubs or gallops. S1 and S2 heard. EXTREMITIES: Normal range of motion, no edema. No clubbing or cyanosis. Peripheral pulses intact. Right radial access site soft, non-tender with ecchymosis. ASSESSMENT Inferior STEMI V-fib arrest s/p defibrillation Dyslipidemia Hypertension PLAN Stable from a cardiac perspective for discharge home on current medical regimen. Importance of dual anti-platelet therapy discussed. Continue beta gildardo and SHWETA inhibitor as ordered. Prescriptions have been sent to the pharmacy. Follow up with Dr. Read in 1 week. Nurse Practitioner note has been reviewed, I agree with a documented findings and plan of care. Patient was seen and examined. Objective - Vital Signs Vital signs: Vital Signs Temp 96.7 F L 12/01/20 11:55 Pulse 71 12/01/20 11:55 Resp 16 12/01/20 11:55 BP 129/62 12/01/20 11:55 Pulse Ox 97 12/01/20 11:55 Intake & Output 11/30/20 12/01/20 12/01/20 18:59 06:59 18:59 Intake Total 1480 100 240 Output Total 250 Balance 1230 100 240 Weight 63 kg 49.442 kg Intake: IV 150 Sodium Chloride 0.9% 1, 150 000 ml @ 75 mls/hr IV . [id number] [facility] Rx#:[id number] Oral 1330 100 240 Output: Urine 250 Other: Voiding Method Bedside Commode Toilet # Voids 1 2 # Bowel Movements 0 - Labs CBC & Chem 7: 12/01/20 07:28 12/01/20 07:28 Labs: Abnormal Lab Results - Last 24 Hours (Table) 12/01/20 12/01/20 Range/Units 07:28 07:28 WBC 14.3 H (3.8-10.6) k/uL RBC 3.49 L (3.80-5.40) m/uL Hct 33.9 L (34.0-46.0) % Neutrophils # 12.3 H (1.3-7.7) k/uL Lymphocytes # 0.8 L (1.0-4.8) k/uL Sodium 129 L (137-145) mmol/L Glucose 119 H (74-99) mg/dL HDL Cholesterol 84 H (40-60) mg/dL
--- NOTE | 2020-12-01 23:20 | P.DS ---
Providers Date of admission: 11/29/20 16:38 Attending physician: Jose Larsen Consults: 11/29/20 14:27 Consult Physician Stat Consulting Provider: iMkal Read Consult Reason/Comments: STEMI Do you want consulting provider notified?: Already Contacted 11/29/20 15:19 Consult Physician Routine Consulting Provider: [facility] Consult Reason/Comments: Post Interventional patient Do you want consulting provider notified?: Already Contacted 11/29/20 16:16 Consult Physician Routine Consulting Provider: Jose Larsen Consult Reason/Comments: medical management Do you want consulting provider notified?: Already Contacted Primary care physician: Hank Glynn Hospital Course: Diagnoses: ST elevation myocardial infarction, status post cardiac cath and PCI to circumflex coronary artery Mild leukocytosis, secondary to above Mild hyponatremia secondary to excessive water-drinking Hospital course: This is a pleasant 84 years old female with multiple medical problems, who presents because of chest pain and found to have ST elevation myocardial infarction and patient underwent cardiac cath by cardiology team with stent placed to circumflex artery. Postprocedure patient she feels well with no chest pain or dyspnea or palpitation or dizziness. No other GI or urinary symptoms. No fever. No headache or weakness or numbness. Patient is started on aspirin and Plavix. Patient has mild leukocytosis at 14.3 gait and mild hyponatremia at 129, however patient is asymptomatic. Patient was secured for discharge by dental practice manager and patient wants to go home today. Patient instructed to restrict the amount of water-drinking to half what she consumes now and she agrees, also she was instructed to follow up with her PCP to check her sodium and she agrees Problems and management plan were discussed with the patient and he verbalized understanding and acceptance Patient was found stable and can be discharged home however he needs follow-up as an outpatient. Patient was instructed to follow up with PCP within one week and patient agrees, patient also was instructed to follow up with dental practice manager Dr. Read in 1-2 weeks. Patient agrees for staff to make her appointments Physical exam Gen: patient is a AAOx3, no distress CVS: S1-S2, RRR, no murmur Lungs: B/L CTA, no wheezing Abdomen: soft, no distention, no tenderness, positive bowel sounds Extremity: no leg edema or induration Time spent more than 35 minutes Patient Condition at Discharge: Serious Plan - Discharge Summary Discharge Rx Participant: Yes New Discharge Prescriptions: New Aspirin 81 mg PO DAILY chew Atorvastatin [Lipitor] 40 mg PO HS #90 tab Clopidogrel [Plavix] 75 mg PO DAILY #90 tab Nitroglycerin Sl Tabs [Nitrostat] 0.4 mg SUBLINGUAL Q5M PRN #20 tab PRN Reason: Chest Pain Metoprolol Tartrate [Lopressor] 25 mg PO BID #180 tab lisinopriL [Zestril] 5 mg PO DAILY #90 tab Continue Multivitamins, Thera [Multivitamin (formulary)] 1 tab PO DAILY Levothyroxine Sodium [Synthroid] 88 mcg PO DAILY Ezetimibe [Zetia] 10 mg PO DAILY Calcium Carbonate/Vitamin D3 [Calcium 600-Vit D3 400 Tablet] 1 tab PO DAILY Famotidine [Pepcid] 20 mg PO DAILY PRN PRN Reason: Heartburn Discontinued Atorvastatin [Lipitor] 10 mg PO DAILY atenoloL [Atenolol] 25 mg PO DAILY Discharge Medication List Calcium Carbonate/Vitamin D3 [Calcium 600-Vit D3 400 Tablet] 1 tab PO DAILY 10/19/15 [History] Ezetimibe [Zetia] 10 mg PO DAILY 10/19/15 [History] Famotidine [Pepcid] 20 mg PO DAILY PRN 10/19/15 [History] Levothyroxine Sodium [Synthroid] 88 mcg PO DAILY 10/19/15 [History] Multivitamins, Thera [Multivitamin (formulary)] 1 tab PO DAILY 10/19/15 [History] Aspirin 81 mg PO DAILY chew 12/01/20 [Rx] Atorvastatin [Lipitor] 40 mg PO HS #90 tab 12/01/20 [Rx] Clopidogrel [Plavix] 75 mg PO DAILY #90 tab 12/01/20 [Rx] Metoprolol Tartrate [Lopressor] 25 mg PO BID #180 tab 12/01/20 [Rx] Nitroglycerin Sl Tabs [Nitrostat] 0.4 mg SUBLINGUAL Q5M PRN #20 tab 12/01/20 [Rx] lisinopriL [Zestril] 5 mg PO DAILY #90 tab 12/01/20 [Rx] Follow up Appointment(s)/Referral(s): Rehab [facility],Cardiac [NON-STAFF] - (After discharge, you will follow-up with your dental practice manager. Once you have obtained a prescription for cardiac rehab, please call [phone] to set up an evaluation.) Gretta Mckinney MD [Primary Care Provider] - 12/08/20 10:30 am (Check your sodium level and white cell count with your doctor.) Mikal Read DO [STAFF PHYSICIAN] - 12/09/20 1:30 pm Patient Instructions/Handouts: Heart Attack (DC), Heart Healthy Diet (DC), Safe Use of Antiplatelet Medication (DC) Activity/Diet/Wound Care/Special Instructions: Heart healthy diet. We recommend fluid restriction 1.5 L per day Activity is restricted till you see your doctor we recommend you check your sodium level and white cell count with your doctor. CARDIAC CATH 1. Support your puncture site by applying firm, steady pressure whenever you cough, laugh, sneeze or bear down to have a bowel movement (2-day restriction). 2. Watch for any excessive bruising, active bleeding, a firm knot forming under your skin, extreme tenderness and signs of infection (redness, swelling, fever). 3. Shower daily, do not soak puncture in a tub bath, jacuzzi, pool, artis etc. for 1 week. This is to prevent risk of infection. 4. Drink plenty of fluids the day of and day after your procedure to flush contrast dye out of your kidneys. 5. Take all medications as directed. Never stop any new medication without your physicians OK. 6. No driving for 2 days after procedure. 7. 10- pound weight lifting restriction for 1 week. 8. Low sodium/low fat diet. 9. Activity limited until follow up appointment with your dental practice manager. In case of any problems, please call [facility] [place] @ [phone]. Medications faxed to [facility] on [address] Discharge Disposition: HOME SELF-CARE
== END 2020-12-01 14:00 | disposition home or self-care (01) | DRG 246 ==
LOC: EC 14:08 → 2SICU 15:57 → EC 16:38 → 3SCARD 11-30 12:08
PROVIDERS: ADMIT Hospitalist; ATTEND Hospitalist
PROC: B2111ZZ Fluoroscopy of Multiple Coronary Arteries using Low Osmolar Contrast (ICD-10-PCS; principal; 2020-11-29 14:23)
PROC: 02JY3ZZ Inspection of Great Vessel, Percutaneous Approach (ICD-10-PCS; principal; 2020-11-29 14:23)
PROC: 027034Z Dilation of Coronary Artery, One Artery with Drug-eluting Intraluminal Device, Percutaneous Approach (ICD-10-PCS; principal; 2020-11-29 14:23)
DX: I21.19 ST elevation (STEMI) myocardial infarction involving other coronary artery of inferior wall (principal); I49.01 Ventricular fibrillation; E87.1 Hypo-osmolality and hyponatremia; J98.11 Atelectasis; I25.41 Coronary artery aneurysm; I27.20 Pulmonary hypertension, unspecified; Z20.822 Contact with and (suspected) exposure to COVID-19; I25.10 Atherosclerotic heart disease of native coronary artery without angina pectoris; I25.84 Coronary atherosclerosis due to calcified coronary lesion; E87.6 Hypokalemia; E03.9 Hypothyroidism, unspecified; E78.5 Hyperlipidemia, unspecified; K21.9 Gastro-esophageal reflux disease without esophagitis; I10 Essential (primary) hypertension; D72.829 Elevated white blood cell count, unspecified; M54.9 Dorsalgia, unspecified; H26.9 Unspecified cataract; M19.90 Unspecified osteoarthritis, unspecified site; Z79.890 Hormone replacement therapy; Z79.899 Other long term (current) drug therapy; Z90.710 Acquired absence of both cervix and uterus; Z85.41 Personal history of malignant neoplasm of cervix uteri; Z87.39 Personal history of other diseases of the musculoskeletal system and connective tissue; Z87.891 Personal history of nicotine dependence; Z86.73 Personal history of transient ischemic attack (TIA), and cerebral infarction without residual deficits; Z87.81 Personal history of (healed) traumatic fracture; Z98.890 Other specified postprocedural states; Z88.1 Allergy status to other antibiotic agents; Z88.5 Allergy status to narcotic agent; Z88.0 Allergy status to penicillin; Z88.2 Allergy status to sulfonamides; Z88.8 Allergy status to other drugs, medicaments and biological substances; Z80.6 Family history of leukemia
CPT/HCPCS: 36415; 71045; 80048; 80053; 80061; 81001; 82565; 83735; 85025; 85652; 86038; 86140; 86255; 86431; 87635; 93306; 93454; 99285

== ENCOUNTER → 2020-12-24 | Outpatient (CLI) | payer MEDICARE ==
[2020-12-24 15:51] LABS: HCT 28.1 % (37.2-46.3); HGB 8.9 g/dL (12.0-15.0); MCHC 31.7 g/dL (32.0-37.0); MCV 101.1 fL (80.0-97.0); Platelet Count 426 X 10*3/uL (140-440); RBC 2.78 X 10*6/uL (4.10-5.20); RDW 12.9 % (11.5-14.5); WBC 7.12 X 10*3/uL (4.50-10.00)
[2020-12-24 21:19] LABS: African American GFR (CKD) 79.6 (60.0-200.0); Albumin 4.3 g/dL (3.80-4.90); Anion Gap 6.2 mmol/L (4.00-12.00); Calcium 9.9 mg/dL (8.7-10.3); Carbon Dioxide 25.8 mmol/L (21.6-31.8); Non-African American GFR(CKD) 68.7 (60.0-200.0); Phosphorus 4.1 mg/dL (2.4-5.1); Potassium 4.4 mmol/L (3.5-5.5)
[2020-12-26 02:33] LABS: % Iron Saturation 16.51 (12.00-45.00)
[2020-12-26 03:02] LABS: Folate, Serum 17.7 ng/mL
== END | disposition home or self-care (01) ==
LOC: LABWHC1 10:10
PROVIDERS: ATTEND Internal Medicine
DX: D64.9 Anemia, unspecified (principal); R60.9 Edema, unspecified; R53.83 Other fatigue
CPT/HCPCS: 36415; 80069; 82607; 82746; 83540; 83550; 85027

== ENCOUNTER → 2021-01-11 | Outpatient (CLI) | payer MEDICARE ==
[2021-01-11 18:42] LABS: HCT 25.5 % (37.2-46.3); MCH 31.3 pg (27.0-32.0); MCHC 31.4 g/dL (32.0-37.0); MCV 99.6 fL (80.0-97.0); Mean Platelet Volume 9.4 fL (9.5-12.2); Platelet Count 387 X 10*3/uL (140-440); RBC 2.56 X 10*6/uL (4.10-5.20); WBC 9.47 X 10*3/uL (4.50-10.00)
== END | disposition home or self-care (01) ==
LOC: LABWHC1 11:09
PROVIDERS: ATTEND Internal Medicine
DX: D64.9 Anemia, unspecified (principal); K92.1 Melena
CPT/HCPCS: 36415; 85027